=== PATIENT | female | born 2000 | race Caucasian/White ===

== ENCOUNTER 2025-04-23 22:39 | Emergency (ER) | payer BC ==
[~2025-04-23] VITALS: Ht 167.6 cm; Wt 83.5 kg
[2025-04-24 00:18] VITALS: BP 117/72; TEMP 98.4; O2SAT 98
== END 2025-04-24 00:18 | disposition home or self-care (01) ==
LOC: EDSEX 22:46 → ER 22:46
DX: O12.03 Gestational edema, third trimester (principal); Z3A.33 33 weeks gestation of pregnancy; Z60.2 Problems related to living alone
CPT/HCPCS: 93970-TC

== ENCOUNTER 2025-07-04 13:22 | Emergency (ER) | payer BC ==
[~2025-07-04] VITALS: Ht 157.5 cm; Wt 102.1 kg
[2025-07-04 14:21] LABS: PLATELET COUNT (AUTO) 247 K/uL (150-450); RED BLOOD CELL COUNT(AUTO) 4.58 MIL/uL (4.0-5.2); RED CELL DISTRIBUTION WIDTH 13.8 % (11.5-15.0); WHITE BLOOD COUNT (AUTO) 9.2 K/uL (4.3-11.0)
[2025-07-04 14:28] LABS: CALCIUM, SERUM 9.6 mg/dL (8.5-10.1); CREATININE 1.0 mg/dL (0.6-1.3); SODIUM SERUM 139.0 mmol/L (136-145); UREA NITROGEN, BLOOD 11.0 mg/dL (7-18)
[2025-07-04 14:28] LABS: APPEARANCE,URINE CLEAR (CLEAR); BLOOD, URINE NEGATIVE Ery/uL (NEGATIVE); LEUKOCYTE ESTERASE ,URINE 1+ (NEGATIVE); NITRITE, URINE NEGATIVE (NEGATIVE); UGLUCOSE NEGATIVE (NEGATIVE)
[2025-07-04 14:35] LABS: ASPARTATE AMINOTRANSFERASE 37.0 U/L (15-37); TOTAL PROTEIN, SERUM 7.4 g/dL (6.4-8.2)
[2025-07-04 14:48] LABS: ADD URINE CULTURE YES
[2025-07-04] MEDS ORDERED: CEPH-570 PO (15:49)
[2025-07-04] MEDS ORDERED: CEPHALEXIN MONOHYDRATE 500 MG CAPSULE PO ONE (16:05)
[2025-07-04] MEDS: CEPHALEXIN MONOHYDRATE 500 MG CAPSULE PO ONE (16:05)
[2025-07-04 16:15] VITALS: BP 163/64; TEMP 98.1; O2SAT 96
== END 2025-07-04 16:16 | disposition home or self-care (01) ==
LOC: ER 13:26
DX: N39.0 Urinary tract infection, site not specified (principal); R10.9 Unspecified abdominal pain; R10.2 Pelvic and perineal pain; Z60.2 Problems related to living alone
CPT/HCPCS: 36415; 76856-TC; 80048-TC; 80076-TC; 81001; 83690-TC; 84702-TC; 84703-TC; 85025-TC; 87086-TC